=== PATIENT | female | born 1970 | race African-American/Black ===

== ENCOUNTER 2022-07-29 11:33 | Inpatient (IN) | payer OTHER ==
[2022-07-29 13:10] VITALS: BMI 19.3
[2022-07-29 14:57] LABS: EPI CELLS 16 /uL (0-25.1); HYALINE CASTS 2 /uL (0-3.1); PH,URINE 5.5 (5.0-8.0); URINE APPEARANCE CLEAR; URINE BACTERIA 11 /uL (0-1359); URINE BILIRUBIN NEGATIVE (NEGATIVE); URINE COLOR YELLOW; URINE GLUCOSE (UA) NEGATIVE (NEGATIVE); URINE KETONE NEGATIVE (NEGATIVE); URINE LEUK ESTERASE NEGATIVE (NEGATIVE); URINE NITRITE NEGATIVE (NEGATIVE); URINE PROTEIN 1+ (NEGATIVE); URINE RBC 16 /uL (0-23.9); URINE UROBILINOGEN 0.2 mg/dL (0.2-1.0); URINE WBC 31 /uL (0-25.8)
[2022-07-29 15:15] LABS: VENOUS BASE EXCESS -2.5 mmol/L (-2-2); VENOUS O2 SATURATION 59.5 % (70-80); VENOUS PCO2 46.1 mmHg (38-52); VENOUS PH 7.325 (7.310-7.410)
[2022-07-29 15:21] LABS: BASO % 0.3 % (0-2.0); EOS % 1.6 % (0-4.5); HEMATOCRIT 24.7 % (32.4-45.2); HEMOGLOBIN 8.1 GM/dL (10.7-15.3); LYMPH % 11.5 % (8-40); MCH 25.1 pg (25.7-33.7); MCHC 32.6 g/dl (32.0-36.0); MEAN CELL VOLUME 76.8 fl (80-96); MEAN PLT VOLUME 8.5 fl (7.5-11.1); MONO % 4.5 % (3.8-10.2); NEUT % 82.1 % (42.8-82.8); PLATELET COUNT 565 10^3/uL (134-434); RBC 3.22 M/mm3 (3.60-5.2); RDW 16.7 % (11.6-15.6); WHITE BLOOD COUNT 15.8 K/mm3 (4.0-10.0)
[2022-07-29 15:29] LABS: INR 1.36 (0.83-1.09); PROTHROMBIN TIME (PATIENT) 15.7 SEC (9.7-13.0)
[2022-07-29 15:31] LABS: ACTIVATED PTT 34.8 SECONDS (25.2-36.5)
[2022-07-29] MEDS ORDERED: clonazePAM 0.5 MG TABLET PO ONE (15:39)
[2022-07-29] MEDS ORDERED: SODIUM CHLORIDE 0.9% 500 ML INFUS.BAG IV ONE (15:39)
[2022-07-29 15:51] LABS: BLOOD UREA NITROGEN 12.5 mg/dL (7-18); CALCIUM 9.9 mg/dL (8.5-10.1)
[2022-07-29 15:52] LABS: ALBUMIN 2.4 g/dl (3.4-5.0)
[2022-07-29 15:55] LABS: CREATININE 0.8 mg/dL (0.55-1.3)
[2022-07-29 15:56] LABS: BILIRUBIN,TOTAL 0.8 mg/dL (0.2-1); TOT PROT 8.2 g/dl (6.4-8.2)
[2022-07-29] MEDS ORDERED: MIDAZOLAM HCL 2 MG/2 ML SINGLE DOSE VIAL IVPUSH ONE (16:18)
[2022-07-29] MEDS ORDERED: clonazePAM 0.5 MG TABLET ONE (16:42)
[2022-07-29] MEDS ORDERED: MIDAZOLAM HCL 2 MG/2 ML SINGLE DOSE VIAL ONE (16:42)
[2022-07-29] MEDS: fentaNYL 100mcg/hr PATCH.TD72 TD SCH (17:21)
[2022-07-29] MEDS ORDERED: PIPERACILLIN/TAZOB 4.5 GM 4.5 GM in DEXTROSE 5%-WATER 100 ML IVPB ONE (22:43)
[2022-07-29] MEDS ORDERED: LORazepam 2 MG/ML SDV VIAL IVPUSH ONE (22:46)
[2022-07-29] MEDS ORDERED: VANCOMYCIN/WATER 1250 MG 1,250 MG/250 ML BAG IVPB ONE (23:19)
[2022-07-29] MEDS ORDERED: PIPERACILLIN/TAZOB 4.5 GM 4.5 GM/100 ML BAG IVPB ONE (23:19)
[2022-07-29] MEDS ORDERED: VANCOMYCIN/WATER 1,250 MG/250 ML BAG (RESTRICTED TO ID ONLY) IVPB ONE (23:24)
[2022-07-30 07:59] LABS: ALBUMIN 2.2 g/dl (3.4-5.0); BLOOD UREA NITROGEN 11.6 mg/dL (7-18); CALCIUM 9.3 mg/dL (8.5-10.1); MAGNESIUM 1.1 mg/dL (1.8-2.4)
[2022-07-30 08:02] LABS: CREATININE 0.6 mg/dL (0.55-1.3)
[2022-07-30 08:03] LABS: TOT PROT 7.7 g/dl (6.4-8.2)
[2022-07-30 08:14] LABS: BASO % 0.7 % (0-2.0); EOS % 1.7 % (0-4.5); HEMATOCRIT 23.4 % (32.4-45.2); HEMOGLOBIN 7.8 GM/dL (10.7-15.3); LYMPH % 15.5 % (8-40); MCH 25.7 pg (25.7-33.7); MCHC 33.3 g/dl (32.0-36.0); MEAN CELL VOLUME 77.4 fl (80-96); MEAN PLT VOLUME 8.4 fl (7.5-11.1); MONO % 4.2 % (3.8-10.2); NEUT % 77.9 % (42.8-82.8); PLATELET COUNT 514 10^3/uL (134-434); RBC 3.02 M/mm3 (3.60-5.2); RDW 16.9 % (11.6-15.6); WHITE BLOOD COUNT 9.2 K/mm3 (4.0-10.0)
[2022-07-30] MEDS ORDERED: ASPIRIN 81 MG CHEWABLE TABLETS ONE (09:01)
[2022-07-30] MEDS ORDERED: METOPROLOL TARTRATE 25 MG TABLET (FP) ONE ×2 (09:01→21:12)
[2022-07-30] MEDS: ASPIRIN 81 MG CHEWABLE TABLETS GT SCH (09:16)
[2022-07-30] MEDS: METOPROLOL TARTRATE 25 MG TABLET (FP) GT SCH ×2 (09:17→21:26)
[2022-07-30] MEDS ORDERED: PANTOPRAZOLE SODIUM 40 MG/100 ML BAG IVPB ONE (10:47)
[2022-07-30] MEDS ORDERED: PIPERACILLIN/TAZOB 3.375 GM 3.375 GM/50 ML BAG IVPB ONE (10:47)
[2022-07-30] MEDS: PANTOPRAZOLE SODIUM 40 MG VIAL IVPUSH SCH (11:11)
[2022-07-30] MEDS ORDERED: PIPERACILLIN/TAZOB 3.375 GM 3.375 GM in DEXTROSE 5%-WATER - 50 ML IVPB SCH ×2 (11:15→18:00)
[2022-07-30] MEDS ORDERED: ATORVASTATIN CA 80 MG TABLET (FP) ONE (21:12)
[2022-07-30] MEDS: ATORVASTATIN CA 80 MG TABLET (FP) GT SCH (21:26)
[2022-07-30] MEDS ORDERED: VANCOMYCIN/WATER 1,250 MG/250 ML BAG (RESTRICTED TO ID ONLY) IVPB ONE (22:43)
[2022-07-31] MEDS ORDERED: ATORVASTATIN CA 80 MG TABLET (FP) ONE (09:01)
[2022-07-31] MEDS ORDERED: ASPIRIN 81 MG CHEWABLE TABLETS ONE (09:01)
[2022-07-31] MEDS ORDERED: METOPROLOL TARTRATE 25 MG TABLET (FP) ONE (09:01)
[2022-07-31] MEDS ORDERED: PANTOPRAZOLE SODIUM 40 MG/100 ML BAG IVPB ONE (09:02)
[2022-07-31] MEDS: PANTOPRAZOLE SODIUM 40 MG VIAL IVPUSH SCH (09:26)
[2022-07-31] MEDS: METOPROLOL TARTRATE 25 MG TABLET (FP) GT SCH ×2 (09:26→23:03)
[2022-07-31] MEDS: ASPIRIN 81 MG CHEWABLE TABLETS GT SCH (09:26)
[2022-07-31] MEDS ORDERED: MAGNESIUM SULFATE IN WATER 2 GM/50 ML IVPB IVPB ONE ×2 (20:15→20:23)
[2022-07-31] MEDS: ATORVASTATIN CA 80 MG TABLET (FP) GT SCH (23:03)
[2022-08-01] MEDS: METOPROLOL TARTRATE 25 MG TABLET (FP) GT SCH ×2 (09:28→21:24)
[2022-08-01] MEDS: ASPIRIN 81 MG CHEWABLE TABLETS GT SCH (09:28)
[2022-08-01] MEDS: PANTOPRAZOLE SODIUM 40 MG VIAL IVPUSH SCH (09:28)
[2022-08-01] MEDS: fentaNYL 100mcg/hr PATCH.TD72 TD SCH (16:01)
[2022-08-01] MEDS: FENTANYL PATCH WASTE MC PRN (16:09)
[2022-08-01 16:20] LABS: BASO % 0.7 % (0-2.0); EOS % 1.4 % (0-4.5); HEMATOCRIT 24.1 % (32.4-45.2); HEMOGLOBIN 7.9 GM/dL (10.7-15.3); LYMPH % 23.4 % (8-40); MCHC 32.9 g/dl (32.0-36.0); MEAN CELL VOLUME 78.9 fl (80-96); MEAN PLT VOLUME 8.2 fl (7.5-11.1); MONO % 6.1 % (3.8-10.2); NEUT % 68.4 % (42.8-82.8); PLATELET COUNT 552 10^3/uL (134-434); RBC 3.06 M/mm3 (3.60-5.2); RDW 17.4 % (11.6-15.6); WHITE BLOOD COUNT 8.3 K/mm3 (4.0-10.0)
[2022-08-01 16:39] LABS: CALCIUM 9.9 mg/dL (8.5-10.1)
[2022-08-01 16:40] LABS: ALBUMIN 2.2 g/dl (3.4-5.0); BLOOD UREA NITROGEN 11.6 mg/dL (7-18); MAGNESIUM 1.6 mg/dL (1.8-2.4)
[2022-08-01 16:43] LABS: CREATININE 0.6 mg/dL (0.55-1.3); PHOSPHOROUS 3.8 mg/dL (2.5-4.9)
[2022-08-01 16:44] LABS: BILIRUBIN,TOTAL 1.4 mg/dL (0.2-1); TOT PROT 7.6 g/dl (6.4-8.2)
[2022-08-01] MEDS: NYSTATIN 500,000 UNITS/5 ML SUSPENSION PO SCH (17:28)
[2022-08-01] MEDS: ACETAMINOPHEN 650 MG/20.3 ML ORAL SOLUTION (CUPS) PO PRN (17:41)
[2022-08-01] MEDS: clonazePAM 0.25 MG ODT TABLETS SL SCH (21:23)
[2022-08-01] MEDS: QUEtiapine FUMARATE 50 MG TABLET GT SCH (21:23)
[2022-08-01] MEDS: ATORVASTATIN CA 80 MG TABLET (FP) GT SCH (21:24)
[2022-08-02] MEDS: METOPROLOL TARTRATE 25 MG TABLET (FP) GT SCH ×3 (00:27→22:05)
[2022-08-02] MEDS: NYSTATIN 500,000 UNITS/5 ML SUSPENSION PO SCH ×4 (00:27→18:30)
[2022-08-02] MEDS: ASPIRIN 81 MG CHEWABLE TABLETS GT SCH (10:10)
[2022-08-02] MEDS: clonazePAM 0.25 MG ODT TABLETS SL SCH ×2 (10:10→22:05)
[2022-08-02] MEDS: QUEtiapine FUMARATE 50 MG TABLET GT SCH ×2 (10:10→22:05)
[2022-08-02] MEDS: PANTOPRAZOLE SODIUM 40 MG VIAL IVPUSH SCH (10:10)
[2022-08-02] MEDS: ACETAMINOPHEN 650 MG/20.3 ML ORAL SOLUTION (CUPS) PO PRN (11:03)
[2022-08-02 19:02] LABS: EPI CELLS 24 /uL (0-25.1); HYALINE CASTS 3 /uL (0-3.1); URINE APPEARANCE CLOUDY; URINE BACTERIA 1 /uL (0-1359); URINE BILIRUBIN NEGATIVE (NEGATIVE); URINE COLOR DK YELLOW; URINE GLUCOSE (UA) NEGATIVE (NEGATIVE); URINE KETONE TRACE (NEGATIVE); URINE LEUK ESTERASE NEGATIVE (NEGATIVE); URINE NITRITE NEGATIVE (NEGATIVE); URINE PROTEIN 1+ (NEGATIVE); URINE UROBILINOGEN 0.2 mg/dL (0.2-1.0)
[2022-08-02 19:14] LABS: URINE RBC 54.6 /uL (0-23.9)
[2022-08-02 19:15] LABS: URINE WBC 124.2 /uL (0-25.8)
[2022-08-02 19:57] LABS: YEAST MANY (NEGATIVE)
[2022-08-02] MEDS: ATORVASTATIN CA 80 MG TABLET (FP) GT SCH (22:05)
[2022-08-03] MEDS: NYSTATIN 500,000 UNITS/5 ML SUSPENSION PO SCH ×4 (06:45→17:27)
[2022-08-03 07:35] LABS: BASO % 0.4 % (0-2.0); EOS % 2.7 % (0-4.5); HEMOGLOBIN 8.1 GM/dL (10.7-15.3); LYMPH % 31.3 % (8-40); MCH 26.4 pg (25.7-33.7); MCHC 33.6 g/dl (32.0-36.0); MEAN CELL VOLUME 78.7 fl (80-96); MEAN PLT VOLUME 7.9 fl (7.5-11.1); MONO % 5.7 % (3.8-10.2); NEUT % 59.9 % (42.8-82.8); PLATELET COUNT 514 10^3/uL (134-434); RBC 3.05 M/mm3 (3.60-5.2); RDW 17.5 % (11.6-15.6); WHITE BLOOD COUNT 8.4 K/mm3 (4.0-10.0)
[2022-08-03 07:58] LABS: ALBUMIN 2.1 g/dl (3.4-5.0)
[2022-08-03 08:01] LABS: CREATININE 0.5 mg/dL (0.55-1.3)
[2022-08-03 08:03] LABS: BILIRUBIN,TOTAL 0.9 mg/dL (0.2-1); TOT PROT 7.1 g/dl (6.4-8.2)
[2022-08-03 08:13] LABS: BLOOD UREA NITROGEN 13.7 mg/dL (7-18)
[2022-08-03] MEDS ORDERED: VALSARTAN 40 MG TABLET PO SCH (10:00)
[2022-08-03] MEDS: clonazePAM 0.25 MG ODT TABLETS SL SCH ×2 (10:28→22:48)
[2022-08-03] MEDS: QUEtiapine FUMARATE 50 MG TABLET GT SCH ×2 (10:29→22:48)
[2022-08-03] MEDS: ASPIRIN 81 MG CHEWABLE TABLETS GT SCH (10:29)
[2022-08-03] MEDS: METOPROLOL TARTRATE 25 MG TABLET (FP) GT SCH ×2 (10:29→22:11)
[2022-08-03] MEDS: FAMOTIDINE 40 MG/5 ML ORAL SUSPENSION PEG SCH ×2 (12:15→23:54)
[2022-08-03] MEDS ORDERED: SODIUM CHLORIDE 500 ML IV STA (14:01)
[2022-08-03] MEDS: MAGNESIUM SULF 50% (8.12 MEQ/2 ML-1 GM VIAL) IVPB SCH ×2 (15:13→22:12)
[2022-08-03] MEDS: COLLAGENASE CLOSTRIDIUM HIST. 30 GRAMS TUBE TP SCH (15:13)
[2022-08-03] MEDS ORDERED: SODIUM CHLORIDE 250 ML IV STA (21:32)
[2022-08-03] MEDS: ATORVASTATIN CA 80 MG TABLET (FP) GT SCH (22:48)
[2022-08-04] MEDS: NYSTATIN 500,000 UNITS/5 ML SUSPENSION PO SCH ×4 (00:17→18:09)
[2022-08-04 07:28] LABS: BASO % 0.6 % (0-2.0); EOS % 3.3 % (0-4.5); HEMATOCRIT 23.7 % (32.4-45.2); HEMOGLOBIN 8.1 GM/dL (10.7-15.3); LYMPH % 26.4 % (8-40); MCH 26.6 pg (25.7-33.7); MCHC 33.9 g/dl (32.0-36.0); MEAN CELL VOLUME 78.5 fl (80-96); MEAN PLT VOLUME 7.9 fl (7.5-11.1); MONO % 5.8 % (3.8-10.2); NEUT % 63.9 % (42.8-82.8); PLATELET COUNT 433 10^3/uL (134-434); RBC 3.03 M/mm3 (3.60-5.2); RDW 17.9 % (11.6-15.6); WHITE BLOOD COUNT 8.2 K/mm3 (4.0-10.0)
[2022-08-04 07:46] LABS: CALCIUM 8.7 mg/dL (8.5-10.1)
[2022-08-04 07:47] LABS: BLOOD UREA NITROGEN 15.1 mg/dL (7-18); MAGNESIUM 1.5 mg/dL (1.8-2.4)
[2022-08-04 07:50] LABS: CREATININE 0.5 mg/dL (0.55-1.3)
[2022-08-04 07:51] LABS: BILIRUBIN,TOTAL 0.8 mg/dL (0.2-1); TOT PROT 6.8 g/dl (6.4-8.2)
[2022-08-04] MEDS ORDERED: POTASSIUM CHLORIDE ORAL LIQUID 20 MEQ/15 ML GT ONE (08:45)
[2022-08-04] MEDS ORDERED: MAGNESIUM 2GM/50ML STERILE WATER IVPB IVPB ONE ×2 (08:45→11:48)
[2022-08-04] MEDS: METOPROLOL TARTRATE 25 MG TABLET (FP) GT SCH ×2 (10:35→21:42)
[2022-08-04] MEDS: clonazePAM 0.25 MG ODT TABLETS SL SCH ×2 (10:35→21:41)
[2022-08-04] MEDS: MAGNESIUM OXIDE 400 MG TABLET (FP) PEG SCH ×2 (10:36→21:42)
[2022-08-04] MEDS: QUEtiapine FUMARATE 50 MG TABLET GT SCH ×2 (10:36→21:42)
[2022-08-04] MEDS: FAMOTIDINE 40 MG/5 ML ORAL SUSPENSION PEG SCH ×2 (10:36→21:42)
[2022-08-04] MEDS: COLLAGENASE CLOSTRIDIUM HIST. 30 GRAMS TUBE TP SCH (10:45)
[2022-08-04] MEDS: ASPIRIN 81 MG CHEWABLE TABLETS GT SCH (10:45)
[2022-08-04] MEDS ORDERED: SODIUM CHLORIDE 500 ML IV STA (11:50)
[2022-08-04] MEDS: fentaNYL 100mcg/hr PATCH.TD72 TD SCH (17:19)
[2022-08-04] MEDS: FENTANYL PATCH WASTE MC PRN (17:21)
[2022-08-04] MEDS: ATORVASTATIN CA 80 MG TABLET (FP) GT SCH (21:41)
[2022-08-04] MEDS: ACETAMINOPHEN 650 MG/20.3 ML ORAL SOLUTION (CUPS) PO PRN (22:00)
[2022-08-05] MEDS: NYSTATIN 500,000 UNITS/5 ML SUSPENSION PO SCH ×4 (00:14→17:38)
[2022-08-05] MEDS: clonazePAM 0.25 MG ODT TABLETS SL SCH ×2 (10:13→21:27)
[2022-08-05] MEDS: ASPIRIN 81 MG CHEWABLE TABLETS GT SCH (10:13)
[2022-08-05] MEDS: COLLAGENASE CLOSTRIDIUM HIST. 30 GRAMS TUBE TP SCH (10:14)
[2022-08-05] MEDS: FAMOTIDINE 40 MG/5 ML ORAL SUSPENSION PEG SCH ×2 (10:14→21:27)
[2022-08-05] MEDS: METOPROLOL TARTRATE 25 MG TABLET (FP) GT SCH ×2 (10:14→21:27)
[2022-08-05] MEDS: QUEtiapine FUMARATE 50 MG TABLET GT SCH ×2 (10:14→21:27)
[2022-08-05] MEDS: MAGNESIUM OXIDE 400 MG TABLET (FP) PEG SCH ×2 (10:14→21:27)
[2022-08-05] MEDS ORDERED: MAGNESIUM SULF 50% (8.12 MEQ/2 ML-1 GM VIAL) IVPB ONE (10:45)
[2022-08-05] MEDS ORDERED: DEXTROSE 50%-WATER 25 GM/50 ML DISP.SYRIN ONE ×3 (11:59→21:03)
[2022-08-05] MEDS ORDERED: DEXTROSE 50%-WATER - 25 GM/50 ML VIAL IVPUSH PRN ×2 (12:04→13:11)
[2022-08-05] MEDS: AMINO ACIDS/PROTEIN HYDROLYS 30 ML LIQUID.PKT PO SCH (17:37)
[2022-08-05] MEDS: ACETAMINOPHEN 650 MG/20.3 ML ORAL SOLUTION (CUPS) PO PRN (21:26)
[2022-08-05] MEDS: ATORVASTATIN CA 80 MG TABLET (FP) GT SCH (21:27)
[2022-08-06] MEDS: NYSTATIN 500,000 UNITS/5 ML SUSPENSION PO SCH ×5 (02:30→23:17)
[2022-08-06] MEDS ORDERED: SCOPOLAMINE HYDROBROMIDE 1 PATCH PATCH.TD72 TD SCH (08:45)
[2022-08-06] MEDS ORDERED: MULTIVITAMINS (DAILY MVI) TABLET (FP) PO SCH (10:00)
[2022-08-06] MEDS: AMINO ACIDS/PROTEIN HYDROLYS 30 ML LIQUID.PKT PO SCH ×2 (10:06→18:03)
[2022-08-06] MEDS: QUEtiapine FUMARATE 50 MG TABLET GT SCH ×2 (10:06→21:30)
[2022-08-06] MEDS: ASPIRIN 81 MG CHEWABLE TABLETS GT SCH (10:07)
[2022-08-06] MEDS: ASCORBIC ACID 500 MG TABLET (FP) PO SCH (10:07)
[2022-08-06] MEDS: clonazePAM 0.25 MG ODT TABLETS SL SCH ×2 (10:07→21:29)
[2022-08-06] MEDS: METOPROLOL TARTRATE 25 MG TABLET (FP) GT SCH ×2 (10:07→21:30)
[2022-08-06] MEDS: COLLAGENASE CLOSTRIDIUM HIST. 30 GRAMS TUBE TP SCH (10:07)
[2022-08-06] MEDS: MAGNESIUM OXIDE 400 MG TABLET (FP) PEG SCH ×2 (10:07→21:30)
[2022-08-06] MEDS ORDERED: MULTIVIT-MINERALS ORAL LIQUID PO SCH (10:45)
[2022-08-06] MEDS: FAMOTIDINE 40 MG/5 ML ORAL SUSPENSION PEG SCH ×2 (11:21→21:33)
[2022-08-06] MEDS: MIDODRINE HCL 2.5 MG TABLET PO SCH ×2 (13:09→18:03)
[2022-08-06] MEDS: CEFUROXIME AXETIL 500 MG TABLET PEG SCH ×2 (13:10→21:35)
[2022-08-06] MEDS: ATORVASTATIN CA 80 MG TABLET (FP) GT SCH (21:29)
[2022-08-06] MEDS: ACETAMINOPHEN 650 MG/20.3 ML ORAL SOLUTION (CUPS) PO PRN (23:17)
[2022-08-06] MEDS ORDERED: COSYNTROPIN 0.25 MG VIAL IVPUSH ONE (23:30)
[2022-08-07] MEDS: NYSTATIN 500,000 UNITS/5 ML SUSPENSION PO SCH ×3 (06:10→17:04)
[2022-08-07] MEDS: AMINO ACIDS/PROTEIN HYDROLYS 30 ML LIQUID.PKT PO SCH ×2 (08:55→17:04)
[2022-08-07] MEDS: MULTIVIT-MINERALS ORAL LIQUID PO SCH (09:10)
[2022-08-07] MEDS: METOPROLOL TARTRATE 25 MG TABLET (FP) GT SCH ×2 (09:11→22:04)
[2022-08-07] MEDS: ASPIRIN 81 MG CHEWABLE TABLETS GT SCH (09:11)
[2022-08-07] MEDS: MIDODRINE HCL 2.5 MG TABLET PO SCH ×3 (09:11→17:04)
[2022-08-07] MEDS: QUEtiapine FUMARATE 50 MG TABLET GT SCH ×2 (09:12→22:05)
[2022-08-07] MEDS: CEFUROXIME AXETIL 500 MG TABLET PEG SCH ×2 (09:12→22:04)
[2022-08-07] MEDS: FAMOTIDINE 40 MG/5 ML ORAL SUSPENSION PEG SCH ×2 (09:12→22:05)
[2022-08-07] MEDS: MAGNESIUM OXIDE 400 MG TABLET (FP) PEG SCH ×2 (09:12→22:05)
[2022-08-07] MEDS: ASCORBIC ACID 500 MG TABLET (FP) PO SCH (09:12)
[2022-08-07] MEDS: clonazePAM 0.25 MG ODT TABLETS SL SCH ×2 (09:12→22:04)
[2022-08-07] MEDS: COLLAGENASE CLOSTRIDIUM HIST. 30 GRAMS TUBE TP SCH (09:15)
[2022-08-07] MEDS ORDERED: HYDROCORTISONE 5 MG TABLET PO SCH (10:00)
[2022-08-07] MEDS: ACETAMINOPHEN 650 MG/20.3 ML ORAL SOLUTION (CUPS) PO PRN ×2 (11:20→20:00)
[2022-08-07] MEDS: HYDROCORTISONE 20 MG, HYDROCORTISONE 5 MG PO SCH (12:12)
[2022-08-07 13:57] LABS: BASO % 0.5 % (0-2.0); EOS % 2.9 % (0-4.5); HEMATOCRIT 22.6 % (32.4-45.2); HEMOGLOBIN 7.6 GM/dL (10.7-15.3); LYMPH % 26.6 % (8-40); MCHC 33.4 g/dl (32.0-36.0); MEAN CELL VOLUME 77.7 fl (80-96); MEAN PLT VOLUME 8.8 fl (7.5-11.1); MONO % 6.8 % (3.8-10.2); NEUT % 63.2 % (42.8-82.8); PLATELET COUNT 450 10^3/uL (134-434); RBC 2.91 M/mm3 (3.60-5.2); RDW 17.7 % (11.6-15.6); WHITE BLOOD COUNT 10.8 K/mm3 (4.0-10.0)
[2022-08-07 14:37] LABS: CALCIUM 9.1 mg/dL (8.5-10.1)
[2022-08-07 14:38] LABS: BLOOD UREA NITROGEN 16.1 mg/dL (7-18)
[2022-08-07 14:40] LABS: CREATININE 0.5 mg/dL (0.55-1.3)
[2022-08-07 14:42] LABS: BILIRUBIN,TOTAL 1.1 mg/dL (0.2-1); TOT PROT 6.8 g/dl (6.4-8.2)
[2022-08-07] MEDS ORDERED: RAPID SEQUENCE INTUBATION KIT NR ONE (17:37)
[2022-08-07 21:38] LABS: MAGNESIUM 1.2 mg/dL (1.8-2.4)
[2022-08-07 22:03] LABS: CALCIUM 9.1 mg/dL (8.5-10.1)
[2022-08-07 22:04] LABS: ALBUMIN 2.2 g/dl (3.4-5.0); BLOOD UREA NITROGEN 18.2 mg/dL (7-18); MAGNESIUM 1.2 mg/dL (1.8-2.4)
[2022-08-07] MEDS: ATORVASTATIN CA 80 MG TABLET (FP) GT SCH (22:04)
[2022-08-07 22:07] LABS: CREATININE 0.6 mg/dL (0.55-1.3)
[2022-08-07 22:08] LABS: BILIRUBIN,TOTAL 0.7 mg/dL (0.2-1); TOT PROT 7.2 g/dl (6.4-8.2)
[2022-08-08] MEDS: NYSTATIN 500,000 UNITS/5 ML SUSPENSION PO SCH ×2 (00:04→06:18)
[2022-08-08] MEDS ORDERED: DEXTROSE 50%-WATER 25 GM/50 ML DISP.SYRIN ONE (06:08)
[2022-08-08] MEDS ORDERED: DEXTROSE 50%-WATER - 25 GM/50 ML VIAL IVPUSH ONE (06:11)
[2022-08-08] MEDS: AMINO ACIDS/PROTEIN HYDROLYS 30 ML LIQUID.PKT PO SCH (08:23)
[2022-08-08] MEDS: MULTIVIT-MINERALS ORAL LIQUID PO SCH (09:22)
[2022-08-08] MEDS: FAMOTIDINE 40 MG/5 ML ORAL SUSPENSION PEG SCH (09:23)
[2022-08-08] MEDS: MIDODRINE HCL 2.5 MG TABLET PO SCH (09:24)
[2022-08-08] MEDS: clonazePAM 0.25 MG ODT TABLETS SL SCH (09:24)
[2022-08-08] MEDS: ASPIRIN 81 MG CHEWABLE TABLETS GT SCH (09:24)
[2022-08-08] MEDS: CEFUROXIME AXETIL 500 MG TABLET PEG SCH (09:25)
[2022-08-08] MEDS: QUEtiapine FUMARATE 50 MG TABLET GT SCH (09:25)
[2022-08-08] MEDS: METOPROLOL TARTRATE 25 MG TABLET (FP) GT SCH (09:25)
[2022-08-08] MEDS: ASCORBIC ACID 500 MG TABLET (FP) PO SCH (09:25)
[2022-08-08] MEDS: MAGNESIUM OXIDE 400 MG TABLET (FP) PEG SCH (09:28)
[2022-08-08] MEDS: COLLAGENASE CLOSTRIDIUM HIST. 30 GRAMS TUBE TP SCH (09:29)
[2022-08-08] MEDS: HYDROCORTISONE 20 MG, HYDROCORTISONE 5 MG PO SCH (09:32)
[2022-08-08] MEDS ORDERED: HYDROCORTISONE 20 MG, HYDROCORTISONE 5 MG PO SCH (10:00)
[2022-08-08 11:07] VITALS: BP 100/60; PULSE 120; RESP 32; TEMP 98.5
== END 2022-08-08 10:52 | DRG 308 ==
LOC: JER 11:33 → JERBED 23:22 → J2W 07-31 12:52
PROVIDERS: ADMIT Internal Medicine; ATTEND Family Medicine
PROC: 5A1955Z Respiratory Ventilation, Greater than 96 Consecutive Hours (ICD-10-PCS; principal; 2022-07-29)
PROC: 30233N1 Transfusion of Nonautologous Red Blood Cells into Peripheral Vein, Percutaneous Approach (ICD-10-PCS; 2022-08-08)
DX: R00.0 Tachycardia, unspecified (principal); R53.2 Functional quadriplegia; G93.1 Anoxic brain damage, not elsewhere classified; R64 Cachexia; Z68.1 Body mass index [BMI] 19.9 or less, adult; Z99.11 Dependence on respirator [ventilator] status; E87.0 Hyperosmolality and hypernatremia; E78.5 Hyperlipidemia, unspecified; M32.9 Systemic lupus erythematosus, unspecified; I11.0 Hypertensive heart disease with heart failure; I50.9 Heart failure, unspecified; Z93.0 Tracheostomy status; R40.1 Stupor; E83.42 Hypomagnesemia; D50.9 Iron deficiency anemia, unspecified; I25.5 Ischemic cardiomyopathy; E86.0 Dehydration
CPT/HCPCS: 0241U-QW; 36415; 36430; 71045-TC-FY; 71275-TC; 80053; 80061; 81003; 82024; 82533; 82550; 82553; 82728; 82803; 82962; 82977; 83036; 83525; 83540; 83550; 83605; 83735; 84100; 84443; 84484; 85025; 85610; 85730; 86850; 86900; 86901; 86922; 87040; 87086; 93005; 93010; 93306-TC; 94002; 99285-25; C9803-CS; J0834; P9058; Q9967; U0003; U0005